=== PATIENT | male | born 1950 | race Caucasian/White ===

== ENCOUNTER → 2017-02-09 | Outpatient (CLI) | payer OTHER | LOC: MRI 01-26 12:02 | DX: M51.36 Other intervertebral disc degeneration, lumbar region (principal) ==

== ENCOUNTER → 2017-02-13 | Outpatient (CLI) | payer OTHER ==
[~2017-02-13] VITALS: Ht 172.7 cm; Wt 139.7 kg
[~2017-02-13] MED LIST: ACTOS 45 MG45 M2 PO; AMITRIPTYLINE H10 M3 PO; ASPIR 8181 M1 PO; GLUCOSAMINE &1 EAC1 PO; JANUVIA100 MG PO; LEVEMIR FL100 UNIT/2 SQ; LISINOPRIL20 MG PO; METFORMIN HCL1000 MG PO; NEURONTIN 300300 M1 PO; ROSUVASTATIN CA40 MG PO; SERTRALINE HCL100 MG PO; ZETIA10 MG PO
--- NOTE | ~2017-02-13 | HPC ---
[facility] [place] [address] PAIN MANAGEMENT CONSULTATION Name: ROBER DALEY Room #: REG [facility].#: [id number] Admission: 02/13/17 Attend Phys: Everardo Chavez MD Discharge: Date of : 48 Report #: [id number] THIS REPORT FOR: //name// CC: Everardo Hernandez DATE OF SERVICE: 02/13/2017 CHIEF COMPLAINT: "Low back and right pain down into my leg." HISTORY OF PRESENT ILLNESS: The patient is a 67-year-old gentleman who has been referred to the pain clinic for evaluation of back and leg pain. He started to notice pain and discomfort in December of this year. He described it as a dull aching pain, which radiates down to his right hip and down into his leg. He notes that the pain is made worse, particularly when he is twisting his right leg. It is better with a hot shower. He described it as continuous, steady, constant, cramping, aching, and rates it as a 5/10. He has not had back surgery. He has been taking gabapentin 100 mg b.i.d. to t.i.d. Uses one aspirin 81 mg per day. He perceives a severe weakness in his right leg with numbness in the right foot and the outside portion of his calf. He has also been seen and felt to be experiencing a outbreak of shingles in the low back area. ALLERGIES: No known drug allergies. MEDICATIONS: Chondroitin sulfate, aspirin 81 mg, Actos 45 mg, Januvia 100 mg, Vistaril 20 mg, Zetia 10 mg, sertraline 100 mg, rosuvastatin 40 mg daily, metformin 1000 mg b.i.d., insulin 100 units 15 units nightly, gabapentin 300 mg 1 p.o. t.i.d. PAST MEDICAL HISTORY: Diabetes, outbreak of shingles, asthma. PAST SURGICAL HISTORY: Right hand surgery secondary to broken finger. SOCIAL HISTORY: Worked as a pressman. Has not worked in the last 2 years. REVIEW OF SYSTEMS: Questionnaire in the chart indicates generally good health, fevers/night sweats, wears glasses, frequent urination, incontinence/dribbling, depression, diabetes. PHYSICAL EXAMINATION: Height 172 cm, weight 139 kilograms, BMI is 46.8, blood pressure 162/84, pulse 79, respiratory rate 18, room air saturation is 94%. The patient has pain and discomfort in the back with radiation down into the right leg. Notes numbness, weakness and tenderness in this area. Straight leg raise was positive. The patient has some evidence of rash in the lower portion of his [facility] [address] [place] [address] PAIN MANAGEMENT CONSULTATION Name: ROBER DALEY Room #: REG [facility]#: [id number] Admission: 02/13/17 Attend Phys: Everardo Chavez MD Discharge: Date of : 48 Report #: [id number] buttocks, which is consistent with shingles outbreak. IMPRESSION: Lumbar radiculopathy secondary to L4-L5 distribution with numbness, weakness and tenderness and positive straight leg raise. RECOMMENDATION: We discussed the treatment option with the patient. Risks and benefits of an epidural steroid injection were explained. Possible complications which could include but are not limited to infection, bleeding, increased muscle soreness, nerve damage, spinal headache were discussed and the patient elects to proceed. PROCEDURE NOTE: The patient was placed in the prone position. Bupivacaine 0.25% was infiltrated at the L4-L5 space. A total of 15 seconds fluoroscopy time was used. A total of 80 mg Depo-Medrol, 40 mg triamcinolone and 2 mL 0.25% bupivacaine was injected. The patient's pain decreased to 0 down from 5 after the procedure. He remained in the pain clinic for an appropriate amount of time. He will follow up in the future as needed. We would like to thank you for letting us participate in his care. We hope he continues to improve. By: [id number] Everardo Chavez MD /mrya
[2017-02-13 14:15] VITALS: BP 162/84
== END ==
LOC: PAIN 09:44
DX: M48.06 Spinal stenosis, lumbar region (principal)